=== PATIENT | female | born 1975 | race Caucasian/White ===

== ENCOUNTER 2017-02-24 13:47 | Emergency (ER) | payer OTHER ==
[~2017-02-24] VITALS: Ht 160 cm; Wt 105.5 kg
[~2017-02-24 13:47] MED LIST: AUGMENTIN875 MG PO; BENADRYL25 MG PO; FLONASE16 G1 BOTH NARES; HYDROCHLOROTH12.5 M3 PO; HYDROCODON-ACE1 EAC7 PO; HYDROXYZINE HCL25 MG PO; K-DUR20 MEQ PO; NORCO 5/3251 TABLET PO; ONE DAILY GUM200 MCG PO; PREDNISONE10 MG PO; PROBIOTIC1 EAC1 PO; XANAX0.25 MG PO; ZITHROMAX Z-PA250 MG PO
[2017-02-24 14:04] VITALS: BP 141/78
[2017-02-24 15:04] LABS: HEMATOCRIT 44.4 % (36.0-46.0); HEMOGLOBIN 15.5 G/DL (11.9-15.5); MCH 30.6 PG (29.0-34.0); MCHC 34.9 G/DL (30.0-36.0); MCV 87.6 FL (83-99); PLATELET COUNT 214 K/uL (156-360); RBC DIS.WIDTH-SD 38.4 % (39-53); RED BLOOD COUNT 5.07 M/uL (3.80-5.20)
[2017-02-24 15:16] LABS: CHLORIDE 110 mEq/L (99-109); POTASSIUM 4.3 mEq/L (3.7-5.4); SODIUM 140 mEq/L (136-147)
[2017-02-24 15:17] LABS: GLUCOSE 89 mg/dL (70-99)
[2017-02-24 15:21] LABS: CREATININE 0.7 mg/dL (0.6-1.3); GFR ESTIMATE (CALCULATED) > 59 mL/min/
[2017-02-24 15:22] LABS: UREA NITROGEN (BUN) 12 mg/dL (9-23)
[2017-02-24 15:24] LABS: TROP-I INTERPRETATION NEGATIVE; TROPONIN-I < 0.01 ng/mL (0.0-0.30)
== END 2017-02-24 17:07 | disposition home or self-care (01) ==
LOC: EME 13:47
DX: R00.2 Palpitations (principal); K21.9 Gastro-esophageal reflux disease without esophagitis; F41.9 Anxiety disorder, unspecified; Z87.442 Personal history of urinary calculi; Z87.891 Personal history of nicotine dependence; Z88.0 Allergy status to penicillin; Z88.8 Allergy status to other drugs, medicaments and biological substances
CPT/HCPCS: 80048; 84484; 85027; 93005; 99281; 99284